=== PATIENT | male | born 1965 | race Caucasian/White ===

== ENCOUNTER → 2019-01-03 | Outpatient (CLI) | payer MEDICARE ==
--- NOTE | 2019-01-03 13:03 | XR ---
Lumbosacral spine HISTORY: Back pain 5 views of the lumbosacral spine There is no evident spondylolysis or spondylolisthesis. There is mild spinal curvature. Multilevel sp ondylosis is present. Loss of disc height is greatest at L5-S1 with associated vacuum phenomenon. Scl erosis present in the posterior elements. IMPRESSION: Degenerative disc disease, facet arthropathy, possible spinal curvature.
== END ==
LOC: RADXRYALE 11:33
PROVIDERS: ATTEND Internal Medicine
DX: M51.17 Intervertebral disc disorders with radiculopathy, lumbosacral region (principal); M46.96 Unspecified inflammatory spondylopathy, lumbar region
CPT/HCPCS: 72110